=== PATIENT | male | born 1995 | race Caucasian/White ===

== ENCOUNTER 2024-06-08 18:42 | Inpatient (IN) | payer BC ==
[2024-06-08 19:07] VITALS: BMI 21.2
[2024-06-08] MEDS ORDERED: methaDONE HCL 10 MG TABLET (FOR DETOX USE ONLY) PO PRN (19:19)
[2024-06-08] MEDS ORDERED: BISMUTH SUBSALICYLATE 524 MG/30 ML PO PRN (19:22)
[2024-06-08] MEDS ORDERED: NALOXONE (NARCAN) HCL 4 MG/0.1 ML SPRAY NS PRN (19:22)
[2024-06-08] MEDS ORDERED: BENZOCAINE/MENTHOL (CHLORASEPTIC ) LOZENGE MM PRN (19:22)
[2024-06-08] MEDS ORDERED: MAG HYDROX/AL HYDROX/SIMETH 30 ML UNIT-DOSE CUP PO PRN (19:22)
[2024-06-08] MEDS ORDERED: BENZONATATE 200 MG CAPSULE PO PRN (19:22)
[2024-06-08] MEDS ORDERED: DICYCLOMINE HCL 10 MG CAPSULE PO PRN (19:22)
[2024-06-08] MEDS ORDERED: NICOTINE POLACRILEX 2 MG GUM BUC PRN (19:22)
[2024-06-08] MEDS ORDERED: MAGNESIUM HYDROX 2400MG/30ML ORAL SUSPENSION 30 ML CUP PO PRN (19:22)
[2024-06-08] MEDS ORDERED: guaiFENesin 600 MG TABLET.ER (FP) PO PRN (19:22)
[2024-06-08] MEDS ORDERED: ONDANSETRON *ODT* 4 MG TABLET SL PRN (19:22)
[2024-06-08] MEDS ORDERED: LOPERAMIDE HCL 2 MG CAPSULE PO PRN (19:22)
[2024-06-08] MEDS ORDERED: IBUPROFEN 400 MG TABLET (FP) PO PRN (19:22)
[2024-06-08] MEDS ORDERED: POLYETHYLENE GLYCOL (HEALTHYLAX) 3350 17 GM PACKET PO PRN (19:22)
[2024-06-08] MEDS ORDERED: NICOTINE POLACRILEX 2 MG LOZENGE BC PRN (19:22)
[2024-06-08] MEDS: methaDONE HCL 10 MG TABLET (FOR DETOX USE ONLY) PO ONE (20:27)
[2024-06-08] MEDS ORDERED: methaDONE HCL 10 MG TABLET (FOR DETOX USE ONLY) ONE (20:52)
[2024-06-08] MEDS ORDERED: MELATONIN 5 MG TABLETS ONE (20:54)
[2024-06-08] MEDS: MELATONIN 5 MG TABLETS PO SCH (22:07)
[2024-06-08] MEDS: THIAMINE 100 MG TABLET PO SCH (22:08)
[2024-06-08] MEDS: diazePAM 5 MG TABLET PO SCH (22:08)
[2024-06-08] MEDS ORDERED: diazePAM 5 MG TABLET ONE (22:10)
[2024-06-08] MEDS: SULFAMETHOXAZOLE/TRIMETHOPRIM 800MG/160MG D.S. TABLET PO SCH (22:39)
[2024-06-09] MEDS ORDERED: diazePAM 5 MG TABLET ONE (05:04)
[2024-06-09] MEDS ORDERED: ACETAMINOPHEN 325 MG TABLET (FP) ONE (05:07)
[2024-06-09] MEDS: ACETAMINOPHEN 325 MG TABLET (FP) PO PRN (05:09)
[2024-06-09] MEDS: P-EPHED 60MG/TRIPROLIDI 2.5MG TABLET PO PRN (05:19)
[2024-06-09] MEDS ORDERED: methaDONE HCL 10 MG TABLET (FOR DETOX USE ONLY) ONE (09:53)
[2024-06-09] MEDS ORDERED: PRENATAL VITAMINS W/ FOLIC ACID TABLET (FP) PO ONE (09:56)
[2024-06-09] MEDS: PRENATAL VITAMINS W/ FOLIC ACID TABLET (FP) PO SCH (10:01)
[2024-06-09] MEDS: diazePAM 5 MG TABLET PO SCH (12:30)
[2024-06-09] MEDS: diazePAM 5 MG TABLET PO PRN (22:32)
[2024-06-10] MEDS: diazePAM 5 MG TABLET PO SCH (02:20)
[2024-06-10] MEDS: methaDONE HCL 10 MG TABLET (FOR DETOX USE ONLY) PO ONE (09:56)
[2024-06-10] MEDS: cloNIDine HCL 0.1 MG TABLET PO PRN (09:58)
[2024-06-10] MEDS: IBUPROFEN 600 MG TABLET (FP) PO PRN (19:42)
[2024-06-10] MEDS: guaiFENesin 200 MG/10 ML 10 ML UNIT-DOSE CUPS PO PRN (19:42)
[2024-06-11] MEDS: diazePAM 5 MG TABLET PO SCH (05:17)
[2024-06-11] MEDS: methaDONE HCL 10 MG TABLET PO ONE (10:00)
[2024-06-11] MEDS: cloNIDine HCL 0.1 MG TABLET PO SCH (10:08)
[2024-06-11] MEDS ORDERED: methaDONE HCL 10 MG TABLET PO PRN (11:01)
[2024-06-11 17:53] LABS: BASO % 0.7 % (0-2.0); EOS % 2.6 % (0-4.5); HEMATOCRIT 41.6 % (35.4-49); HEMOGLOBIN 12.8 GM/dL (11.7-16.9); LYMPH % 18.9 % (8-40); MCHC 30.7 g/dl (32.0-35.9); MEAN PLT VOLUME 8.8 fl (7.5-11.1); MONO % 8.4 % (3.8-10.2); NEUT % 69.4 % (42.8-82.8); PLATELET COUNT 343 10^3/uL (134-434); RBC 5.34 M/mm3 (4.00-5.60); RDW 17.3 % (11.9-15.9); WHITE BLOOD COUNT 7.7 K/mm3 (4.0-10.0)
[2024-06-11 17:55] LABS: POTASSIUM 4.9 mmol/L (3.5-5.1)
[2024-06-11 17:57] LABS: ALBUMIN 3.7 g/dl (3.4-5.0); BLOOD UREA NITROGEN 12.4 mg/dL (7-18)
[2024-06-11 18:01] LABS: CREATININE 0.8 mg/dL (0.55-1.3)
[2024-06-11 18:03] LABS: BILIRUBIN,TOTAL 0.2 mg/dL (0.2-1); TOT PROT 7.4 g/dl (6.4-8.2)
[2024-06-12] MEDS: METHOCARBAMOL 500 MG TABLET PO PRN (04:02)
[2024-06-12] MEDS: diazePAM 5 MG TABLET PO ONE (05:53)
[2024-06-12] MEDS ORDERED: methaDONE HCL 10 MG TABLET (FOR DETOX USE ONLY) PO ONE (10:00)
[2024-06-12] MEDS ORDERED: methaDONE 40 MG, methaDONE 10 MG PO ONE (10:00)
[2024-06-12 10:30] VITALS: BP 111/65; PULSE 81; RESP 18; TEMP 97.5
[2024-06-13] MEDS ORDERED: cloNIDine HCL 0.1 MG TABLET PO PRN
[2024-06-13] MEDS ORDERED: methaDONE 40 MG, methaDONE 20 MG PO ONE (10:00)
== END 2024-06-12 09:24 | disposition home or self-care (01) | DRG 773 ==
LOC: YASAS 18:42 → EDBD 18:42 → Y3N 06-09 11:10
PROVIDERS: ADMIT Allergy & Immunology; ATTEND Allergy & Immunology
PROC: HZ2ZZZZ Detoxification Services for Substance Abuse Treatment (ICD-10-PCS; principal; 2024-06-09)
DX: F11.23 Opioid dependence with withdrawal (principal); F10.230 Alcohol dependence with withdrawal, uncomplicated; F14.20 Cocaine dependence, uncomplicated; F17.210 Nicotine dependence, cigarettes, uncomplicated; F31.9 Bipolar disorder, unspecified
CPT/HCPCS: 36415; 80053; 80305; 80307; 85025; 93005; 93010